=== PATIENT | female | born 1960 | race Caucasian/White ===

== ENCOUNTER 2017-06-21 09:39 | Emergency (ER) | payer MEDICAID ==
[~2017-06-21] VITALS: Ht 157.5 cm; Wt 64.2 kg
[2017-06-21 09:43] VITALS: Ht 157.5 cm; Wt 64.2 kg
[2017-06-21] MEDS ORDERED: MECLIZINE 12.5 MG TAB PO ONE (11:00)
[2017-06-21] MEDS ORDERED: MECL-77 PO (12:31)
[2017-06-21] MEDS ORDERED: AZIT250T94 PO (12:31)
--- NOTE | 2017-06-21 12:37 | ERD ---
ER Documentation Chief Complaint Chief Complaint DIZZINESS, RINGING IN THE EARS HPI This 56-year-old female presents with 2 day history of spinning type dizziness. Started while sleeping. She has a history of similar episodes was actually admitted to the hospital a few years ago and diagnosed with sinusitis as a cause of her vertigo. She denies any fevers, vomiting, shortness of the chest pain. She also has a sensation of ringing and congestion her bilateral ears. Nasal congestion and maxillary area discomfort as well. ROS All systems reviewed and are negative except as per history of present illness. Medications Home Meds Active Scripts Meclizine Hcl* (Meclizine Hcl*) 25 Mg Tablet, 25 MG PO Q8H Y for DIZZINESS, #14 TAB Prov:FACUNDO ANGULO MD 06/21/17 Azithromycin* (Zithromax*) 250 Mg Tablet, 250 MG PO .ZPACK DIRECTED, #6 TAB TAKE 500 MG (2 TABS) THE FIRST DAY THEN 250 MG (1 TAB) DAYS 2-5 Prov:FACUNDO ANGULO MD 06/21/17 Allergies Allergies: Coded Allergies: No Known Allergy (Unverified , 06/21/17) PMhx/Soc History of Surgery: No Anesthesia Reaction: No Hx Neurological Disorder: No Hx Respiratory Disorders: No Hx Cardiac Disorders: No Hx Psychiatric Problems: No Hx Miscellaneous Medical Probl: Yes (sinusitis, vertigo) Hx Alcohol Use: No Hx Substance Use: No Hx Tobacco Use: No Smoking Status: Never smoker Physical Exam Vitals Vital Signs Date Time Temp Pulse Resp B/P Pulse Ox O2 Delivery O2 Flow Rate FiO2 06/21/17 09:43 98.4 81 17 139/76 98 Physical Exam Const: [], [id number] per Head: Atraumatic Eyes: Normal Conjunctiva ENT: Normal External Ears, Nose and Mouth. Obscured by wax. Neck: Full range of motion..~ No meningismus. Resp: Clear to auscultation bilaterally Cardio: Regular rate and rhythm, no murmurs Abd: Soft, non tender, non distended. Normal bowel sounds Skin: No petechiae or rashes Back: No midline or flank tenderness Ext: No cyanosis, or edema Neur: Awake and alert no cerebellar signs. Normal gait. No appreciable focal neurologic deficits. Mild reproducible vertigo primary to the left. Psych: Normal Mood and Affect Results 24 hrs Current Medications Medications (Trade) Dose Ordered Sig/Kristal Route PRN Reason Start Time Stop Time Status Last Admin Dose Admin Meclizine HCl (Antivert) 25 mg ONCE ONCE PO 06/21/17 11:00 06/21/17 11:01 DC 06/21/17 10:51 Procedures/MDM Ear lavage was performed. TMs normal after lavage. Patient was to be ambulatory without deficits [id number] to the ED course. She is given Antivert 25 mg of mouth and felt much better after observation treatment and ear lavage. Patient requesting treatment for sinusitis as she had this previously related to possible sinus infection. She will be treated with Antivert, Zithromax and further observation at home and return precautions. Departure Diagnosis: Primary Impression: Sinusitis Sinusitis location: unspecified location Chronicity: unspecified Qualified Code: J32.9 - Sinusitis, unspecified chronicity, unspecified location Additional Impression: Dizziness Condition: Stable Patient Instructions: Inner Ear Problems: Causes of Dizziness (Vertigo), Cerumen Impaction, Home Care, Sinusitis, Abx Tx Additional Instructions: Cheque otro vez con bennett doctor primario en el proximo hernandez or regresa para mas o nueva simptomas. FACUNDO ANGULO MD Jun 21, 2017 12:37
== END 2017-06-21 13:00 | disposition home or self-care (01) ==
LOC: FTE 09:39
DX: J32.9 Chronic sinusitis, unspecified (principal)
CPT/HCPCS: Z7502; Z7610; 99283

== ENCOUNTER 2018-04-05 19:35 | Emergency (ER) | END 2018-04-05 21:33 | disposition home or self-care (01) ==